=== PATIENT | male | born 1975 | race Caucasian/White ===

== ENCOUNTER 2016-09-16 18:35 | Emergency (ER) | payer OTHER ==
[~2016-09-16 18:35] MED LIST: Acetaminophen/HYDROcodone 325-5 MG Tab PO ONE
[2016-09-16 18:53] VITALS: BP 137/68
--- NOTE | 2016-09-16 19:06 | EDM.PDOC ---
ED HPI GENERAL MEDICAL PROBLEM - General Chief Complaint: Lower Extremity Injury/Pain Stated Complaint: right leg injury Time Seen by Provider: 09/16/16 18:55 Source of Information: Reports: Patient History Limitations: Reports: No Limitations - History of Present Illness INITIAL COMMENTS - FREE TEXT/NARRATIVE: Kendall is a 41 yo male who presents to the ER with complaint of pain to his right lower leg. 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 States while he was winching the truck up the cable snapped and the clevis on the cable flew back and caught his leg. Thinks the clevis weighs about 60lbs. States it knocked him to the ground. Has a lot of discomfort on the outside part of his leg just below his knee. Is able to ambulate. Onset: Today Duration: Constant Location: Reports: Lower Extremity, Right Improves with: Reports: Immobilization Worsens with: Reports: Movement Context: Reports: Trauma (blunt force) Associated Symptoms: Reports: No Other Symptoms Right Leg Pain Score (Numeric/FACES): 10 - Related Data Allergies Allergy/AdvReac Type Severity Reaction Status Date / Time pseudoephedrine HCl Allergy Insomnia Verified 08/27/14 07:57 [From Actifed] triprolidine HCl Allergy Insomnia Verified 08/27/14 07:57 [From Actifed] Home Meds: Home Meds Excedrin 1 - 2 tab PO Q4H PRN 09/16/16 [History] Ibuprofen 400 mg PO Q6H PRN 09/16/16 [History] Past Medical History - Past Health History Medical/Surgical History: Denies Medical/Surgical History - Past Surgical History Other Musculoskeletal Surgeries/Procedures:: surgery to fix crushed fingers on left hand Social & Family History - Tobacco Use Smoking Status *Q: Current Every Day Smoker Years of Tobacco use: 23 - Alcohol Use Days Per Week of Alcohol Use: 1 Number of Drinks Per Day: 2 Total Drinks Per Week: 2 - Recreational Drug Use Recreational Drug Use: No Review of Systems - Review of Systems Review Of Systems: ROS reveals no pertinent complaints other than HPI. Musculoskeletal: Reports: Leg Pain (right lower leg) Skin: Reports: Bruising, Lumps. Denies: Cyanosis Neurological: Reports: Difficulty Walking. Denies: Numbness, Paresthesia, Tingling ED EXAM, GENERAL - Physical Exam Exam: See Below Exam Limited By: No Limitations General Appearance: Alert, No Apparent Distress Peripheral Pulses: 2+: Posterior Tibial (R), Dorsalis Pedis (R) Extremities: Normal Capillary Refill, Leg Pain, Other (Full ROM of right knee. Hematoma to proximal 1/3rd of right fibula. Tenderness with palpation. Full ROM of right foot and ankle. ). No: Joint Swelling, Kale's Sign Neurological: No Motor/Sensory Deficits Psychiatric: Normal Affect, Normal Mood Skin Exam: Warm, Dry, Intact, Ecchymosis. No: Cool, Cyanosis ED TRAUMA EXTREMITY PROCEDURES - Splinting Right Lower Extremity Splint Site: right long leg Pre-Procedure NV Status: Normal Post-Procedure NV Status: Normal Splint Material: Fiberglass (one-step) Splint Design: Posterior Applied & Form Fitted By: Provider Provider Post-Splint Application NV Check: NV Status Normal, Good Position Complications: No Course - Vital Signs Last Recorded V/S: Last Vital Signs Temp 99.4 F 09/16/16 18:35 Pulse 72 09/16/16 18:35 Resp 16 09/16/16 18:35 BP 137/68 09/16/16 18:35 Pulse Ox 96 09/16/16 18:35 - Orders/Labs/Meds Orders: Active Orders 24 hr Category Date Time Status Tibia Fibula Rt [CR] Stat Exams 09/16/16 18:39 Ordered Meds: Medications Discontinued Medications Generic Name Dose Route Start Last Admin Trade Name Freq PRN Reason Stop Dose Admin Hydrocodone Bitart/Acetaminophen 2 packet 09/16/16 19:36 Take Home: Acetaminophen/Hydrocod, 2 Tab Pack PO 09/16/16 19:37 ONETIME ONE Departure - Departure Time of Disposition: 19:31 Disposition: Home, Self-Care 01 Clinical Impression: Fracture, fibula, proximal Qualifiers: Encounter type: initial encounter Fracture type: closed Fracture morphology: unspecified fracture morphology Laterality: right Qualified Code(s): S82.831A - Other fracture of upper and lower end of right fibula, initial encounter for closed fracture Hematoma of lower extremity Qualifiers: Encounter type: initial encounter Laterality: right Qualified Code(s): S80.11XA - Contusion of right lower leg, initial encounter - Discharge Information Instructions: Hematoma, [id number] Referrals: PCP,None [Primary Care Provider] - Forms: ED Department Discharge Additional Instructions: 1) Watch for any increase in swelling. 2) Monitor pedal pulses as marked on leg the location. 3) RICE therapy, Rest, Ice, Compression and Elevation 4) Ibuprofen 600mg every 6 hours as needed for swelling/discomfort. 5) 4 tablets of Zoe given, only use for break thru pain, 1 tablet twice a day as needed. 6) Follow up with primary provider in 1-2 weeks. 7) NO DISHES!!!!! - Problem List & Annotations (1) Fracture, fibula, proximal SNOMED Code(s): 26826111 Code(s): S82.839A - OTH FRACTURE OF UPPER AND LOWER END OF UNSP FIBULA, INIT Status: Acute Current Visit: Yes Qualifiers: Encounter type: initial encounter Fracture type: closed Fracture morphology: unspecified fracture morphology Laterality: right Qualified Code (s): S82.831A - Other fracture of upper and lower end of right fibula, initial encounter for closed fracture (2) Hematoma of lower extremity SNOMED Code(s): 236745616 Code(s): S80.10XA - CONTUSION OF UNSPECIFIED LOWER LEG, INITIAL ENCOUNTER Status: Acute Current Visit: Yes Qualifiers: Encounter type: initial encounter Laterality: right Qualified Code(s): S80.11XA - Contusion of right lower leg, initial encounter - Problem List Review Problem List Initiated/Reviewed/Updated: Yes - My Orders Last 24 Hours: My Active Orders 09/16/16 18:39 Tibia Fibula Rt [CR] Stat - Assessment/Plan Last 24 Hours: My Active Orders 09/16/16 18:39 Tibia Fibula Rt [CR] Stat Plan: See additional instructions. Discussed into detail further concerns and signs and symptoms to watch for in regards to compartment syndrome. verbalized understanding in regards to checking pedal pulses and marked location with marker. Advised to ice 20 minutes at a time, 5 times a day.
[2016-09-16] MEDS ORDERED: Take Home: Acetaminophen/HYDROcodone 325-5 MG, 2 Tab Pack PO ONE (19:36)
== END 2016-09-16 19:50 | disposition home or self-care (01) ==
LOC: CC.ED 18:35
DX: S82.831A Other fracture of upper and lower end of right fibula, initial encounter for closed fracture (principal); S80.11XA Contusion of right lower leg, initial encounter; F17.200 Nicotine dependence, unspecified, uncomplicated; Z98.890 Other specified postprocedural states; Z88.8 Allergy status to other drugs, medicaments and biological substances; W23.0XXA Caught, crushed, jammed, or pinched between moving objects, initial encounter; Y92.69 Other specified industrial and construction area as the place of occurrence of the external cause; Y93.89 Activity, other specified; Y99.0 Civilian activity done for income or pay
CPT/HCPCS: 29505; 73590; 99283; A9270